=== PATIENT | male | born 1995 | race American Indian/Alaskan Native ===

== ENCOUNTER 2019-04-08 12:33 | Emergency (ER) | payer SELFPAY ==
[2019-04-08 13:03] VITALS: BP 98/66
--- NOTE | 2019-04-08 13:04 | Event Note ---
ED Screening Note Date of service: 04/08/19 Time: 13:02 ED Screening Note: 23 y/o male comes in for right hand injury from work 6 days ago. Worst with bending This initial assessment/diagnostic orders/clinical plan/treatment(s) is/are subject to change based on patients health status, clinical progression and re- assessment by fellow clinical providers in the ED. Further treatment and workup at subsequent clinical providers discretion. Patient/guardian urged not to elope from the ED as their condition may be serious if not clinically assessed and managed. Initial orders include:
--- NOTE | 2019-04-08 13:27 | XRay Report ---
RIGHT HAND 2 VIEWS INDICATION / CLINICAL INFORMATION: Right hand injury. COMPARISON: None available. FINDINGS: BONES and JOINT(S): No acute fracture or subluxation. No significant arthritis. SOFT TISSUES: No significant abnormality. ADDITIONAL FINDINGS: None. IMPRESSION: No significant abnormality of the right hand. Signer Name: Caleb Michaels MD Signed: 04/08/2019 1:22 PM Workstation Name: [id number]
== END 2019-04-08 16:55 | disposition left against medical advice (07) ==
LOC: ED 12:33
DX: M79.641 Pain in right hand (principal); Z53.21 Procedure and treatment not carried out due to patient leaving prior to being seen by health care provider